=== PATIENT | female | born 1985 | race Caucasian/White ===

== ENCOUNTER 2017-12-13 23:06 | Emergency (ER) | payer OTHER ==
[~2017-12-13] VITALS: Ht 139.7 cm; Wt 50.9 kg
[~2017-12-13 23:06] MED LIST: BACTRIM,SEPT1 TABLET PO; CIPROFLOXACIN250 MG PO; CIPROFLOXACIN500 M1 PO; CLONIDINE HCL0.1 MG PO; DILAUDID2 MG PO; DITROPAN5 MG PO; ENDOCET 5-3251 EACH PO; FENTANYL1 EAC5 TD; FIORICET,ESG1 TABLET PO; Flintstones PO; HYDROCODON-ACE1 EAC7 PO; KEFLEX500 MG PO; KETOROLAC TROME10 MG PO; LUPRON DEPOT11.25 MG IM; LYRICA100 MG PO; LYRICA75 MG PO; MORPHINE SULFAT15 M1 PO; MOTRIN600 MG PO; MOTRIN800 MG PO; NAPROSYN500 MG PO; NAPROXEN500 MG PO; OXYCODONE-APAP1 EAC6 PO; PERCOCET 5/31 TABLET PO; PHENAZOPYRIDIN200 MG PO; PYRIDIUM200 MG PO; ROXICODONE5 MG PO; SILVADENE20 GM TP; TORADOL10 MG PO; TRAMADOL HCL50 MG PO; TRAZODONE HCL50 MG PO; TYLENOL WITH C1 EACH PO; ULTRAM50 MG PO; VALIUM2 MG PO; ZOFRAN ODT4 MG PO; ZOFRAN ODT8 MG PO
[2017-12-14 01:55] VITALS: BP 125/60
== END 2017-12-14 01:55 | disposition home or self-care (01) ==
LOC: EME 23:06
DX: L97.929 Non-pressure chronic ulcer of unspecified part of left lower leg with unspecified severity (principal); L97.919 Non-pressure chronic ulcer of unspecified part of right lower leg with unspecified severity; F11.10 Opioid abuse, uncomplicated; J45.909 Unspecified asthma, uncomplicated; F17.200 Nicotine dependence, unspecified, uncomplicated; Z90.711 Acquired absence of uterus with remaining cervical stump; Z88.6 Allergy status to analgesic agent
CPT/HCPCS: 99281; 99283